=== PATIENT | male | born 2000 | race African-American/Black ===

== ENCOUNTER 2019-01-16 10:41 | Emergency (ER) | payer SELFPAY ==
[~2019-01-16] VITALS: Ht 177.8 cm; Wt 65.9 kg
[2019-01-16 12:54] VITALS: BP 128/77
== END 2019-01-16 12:55 | disposition home or self-care (01) ==
LOC: EMS 10:42
DX: L03.011 Cellulitis of right finger (principal); F12.90 Cannabis use, unspecified, uncomplicated

== ENCOUNTER 2019-01-23 08:36 | Emergency (ER) | payer SELFPAY ==
[~2019-01-23] VITALS: Ht 177.8 cm; Wt 65.9 kg
[2019-01-23] MEDS ORDERED: GuaiFENesin [SUGAR-FREE] 200 MG/10 ML SOLUTION UDCUP PO ONE (09:00)
[2019-01-23] MEDS ORDERED: IBUPROFEN 600 MG TABLET PO ONE (09:00)
[2019-01-23 09:15] VITALS: BP 110/62
== END 2019-01-23 09:30 | disposition home or self-care (01) ==
LOC: EMS 08:40
DX: J06.9 Acute upper respiratory infection, unspecified (principal); J45.909 Unspecified asthma, uncomplicated; F17.200 Nicotine dependence, unspecified, uncomplicated; F12.90 Cannabis use, unspecified, uncomplicated